=== PATIENT | female | born 1955 | race Caucasian/White ===

== ENCOUNTER 2020-04-11 13:46 | Emergency (ER) | payer MEDICARE, BC ==
--- NOTE | 2020-04-11 14:38 | EDM.PDOC ---
ED HPI GENERAL MEDICAL PROBLEM - General Chief Complaint: Gastrointestinal Problem Stated Complaint: DIARRHEA/BACK & STOMACH PAIN Time Seen by Provider: 04/11/20 14:20 Source of Information: Reports: Patient History Limitations: Reports: No Limitations - History of Present Illness INITIAL COMMENTS - FREE TEXT/NARRATIVE: This 64 yo female patient reports to the ED with 5 days of frequent diarrhea. The patient reports she started to have diarrhea this morning at about 0200 and has continued to have loose bowel movements every 45 minutes all day. The patient reports she has also had abdominal cramping, bad gas and belching. The patient reports her stools have been a "yellow" color and "slimy." The patient reports she took some Pepto and Tylenol today. The patient reports she had a similar episode in September that resolved. The patient also reports increased back pain. The patient reports she does have a history of back pain, but it seems to have gotten worse. The patient reports she had a cold pork sandwich and Cheetos for dinner last night. 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 Onset Date: 04/06/20 Duration: Constant Location: Reports: Abdomen, Back Quality: Reports: Other Severity: Moderate Improves with: Reports: None Worsens with: Reports: None Context: Reports: Other Treatments [employer]: Reports: Acetaminophen, Other Medication(s) (Pepto) Abdominal Pain Score (Numeric/FACES): 5 - Related Data Allergies Allergy/AdvReac Type Severity Reaction Status Date / Time Sulfa (Sulfonamide Allergy Cardiac Verified 04/11/20 14:12 Antibiotics) Arrest Home Meds: Home Meds . 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 Musculoskeletal History: Reports: None Neurological History: Reports: None Psychiatric History: Reports: None Endocrine/Metabolic History: Reports: Diabetes, Type II Hematologic History: Reports: None Immunologic History: Reports: None Oncologic (Cancer) History: Reports: None Dermatologic History: Reports: None - Infectious Disease History Infectious Disease History: Reports: None - Past Surgical History Head Surgeries/Procedures: Reports: None HEENT Surgical History: Reports: Cataract Surgery, Naso-Sinus Surgery Social & Family History - Family History Family Medical History: Noncontributory - Tobacco Use Smoking Status *Q: Never Smoker Second Hand Smoke Exposure: No - Caffeine Use Caffeine Use: Reports: Coffee - Recreational Drug Use Recreational Drug Use: No ED ROS GENERAL - Review of Systems Review Of Systems: Comprehensive ROS is negative, except as noted in HPI. ED EXAM, GI/ABD - Physical Exam Exam: See Below Exam Limited By: No Limitations General Appearance: Alert, WD/WN, Mild Distress Eyes: Bilateral: Normal Appearance, EOMI Ears: Normal External Exam, Normal Canal, Hearing Grossly Normal, Normal TMs Nose: Normal Inspection, Normal Mucosa, No Blood Throat/Mouth: Normal Inspection, Normal Lips, Normal Teeth, Normal Gums, Normal Oropharynx, Normal Voice, No Airway Compromise Head: Atraumatic, Normocephalic Neck: Normal Inspection, Supple, Non-Tender, Full Range of Motion Respiratory/Chest: No Respiratory Distress, Lungs Clear, Normal Breath Sounds, No Accessory Muscle Use, Chest Non-Tender Cardiovascular: Normal Peripheral Pulses, Regular Rate, Rhythm, No Edema, No Gallop, No JVD, No Murmur, No Rub GI/Abdominal Exam: Normal Bowel Sounds, Soft, No Organomegaly, No Distention, No Abnormal Bruit, No Mass, Pelvis Stable, Tender (diffuse) (Female) Exam: Deferred Rectal (Female) Exam: Deferred Back Exam: Normal Inspection, Full Range of Motion, NT Extremities: Normal Inspection, Normal Range of Motion, Non-Tender, Normal Capillary Refill, No Pedal Edema Neurological: Alert, Oriented, CN II-XII Intact, Normal Cognition, Normal Gait, Normal Reflexes, No Motor/Sensory Deficits Psychiatric: Normal Affect, Normal Mood Skin Exam: Warm, Dry, Intact, Normal Color, No Rash Lymphatic: No Adenopathy Course - Vital Signs Last Recorded V/S: Last Vital Signs Temp 36.9 C 04/11/20 14:08 Pulse 98 04/11/20 14:08 Resp 16 04/11/20 14:08 BP 100/64 04/11/20 14:08 Pulse Ox 98 04/11/20 14:08 - Orders/Labs/Meds Orders: Active Orders 24 hr Category Date Time Status Abdomen Pelvis wo Cont [CT] Urgent Exams 04/11/20 15:14 Ordered CULTURE URINE [RM] Urgent Lab 04/11/20 14:13 Received Labs: Laboratory Tests 04/11/20 04/11/20 04/11/20 Range/Units 14:13 14:23 14:23 WBC 7.9 (5.0-10.0) 10^3/uL RBC 4.15 L (4.2-5.4) 10^6/uL Hgb 11.9 L (12.0-16.0) g/dL Hct 36.0 L (37.0-47.0) % MCV 86.7 (80-100) fL MCH 28.7 (27.0-34.0) pg MCHC 33.1 (33.0-35.0) g/dL Plt Count 299 (150-450) 10^3/uL Neut % (Auto) 58.2 (42.2-75.2) % Lymph % (Auto) 23.4 (20.5-50.1) % Stewart % (Auto) 10.1 H (2-8) % Eos % (Auto) 8.2 H (1.0-3.0) % Baso % (Auto) 0.1 (0.0-1.0) % Sodium 134 L (136-145) mmol/L Potassium 3.5 (3.5-5.1) mmol/L Chloride 101 (98-107) mmol/L Carbon Dioxide 21 (21-32) mmol/L Anion Gap 15.5 H (7-13) mEq/L BUN 25 H (7-18) mg/dL Creatinine 1.41 H (0.55-1.02) mg/dL Est Cr Clr Drug Dosing 29.62 mL/min Estimated GFR (MDRD) 37 BUN/Creatinine Ratio 17.7 (No establ ref range) Glucose 234 H (74-99) mg/dL Calcium 8.2 L (8.5-10.1) mg/dL Total Bilirubin 0.3 (0.2-1.0) mg/dL AST 11 L (15-37) U/L ALT 19 (14-59) U/L Alkaline Phosphatase 57 (46-116) U/L Total Protein 7.0 (6.4-8.2) g/dL Albumin 3.6 (3.4-5.0) g/dL Globulin 3.4 Albumin/Globulin Ratio 1.1 Amylase 40 (25-115) U/L Lipase 54 L (73-393) U/L Urine Color Yellow (YELLOW) Urine Appearance Clear (CLEAR) Urine pH 6.0 (5.0-9.0) Ur Specific [place] 1.015 (1.005-1.030) Urine Protein Negative (NEGATIVE) Urine Glucose (UA) Negative (NEGATIVE) Urine Ketones Negative (NEGATIVE) Urine Occult Blood Negative (NEGATIVE) Urine Nitrite Negative (NEGATIVE) Urine Bilirubin Negative (NEGATIVE) Urine Urobilinogen 0.2 (0.2-1.0) mg/dL Ur Leukocyte Esterase Trace H (NEGATIVE) Urine RBC 0-5 /HPF Urine WBC 5-10 H (0-5/HPF) /HPF Ur Epithelial Cells Rare (NOT SEEN) /HPF Amorphous Sediment Occasional (NOT SEEN) /HPF Urine Bacteria Rare (0-FEW/HPF) /HPF Urine Mucus Not seen (NOT SEEN) /LPF Departure - Departure Time of Disposition: 15:56 Disposition: Home, Self-Care 01 Condition: Fair Clinical Impression: Gastroenteritis - Discharge Information *PRESCRIPTION DRUG MONITORING PROGRAM REVIEWED*: Not Applicable *COPY OF PRESCRIPTION DRUG MONITORING REPORT IN PATIENT MAGDALENA: Not Applicable Instructions: Viral Gastroenteritis, Adult, [id number] Forms: ED Department Discharge Care Plan Goals: The patient was advised of the examination and lab results during the visit. The patient was encouraged to stick to a BRAT diet (bananas, rice, applesauce and toast) with small frequent sips of fluid. If the patient has any additional symptoms or concerns, the patient should either return to the emergency department or follow-up with her primary care facility. Sepsis Event Note - Evaluation Sepsis Screening Result: No Definite Risk - Focused Exam Vital Signs: Vital Signs Temp Pulse Resp BP Pulse Ox 04/11/20 14:08 36.9 C 98 16 100/64 98 Date Exam was Performed: 04/11/20 Time Exam was Performed: 15:56 - My Orders Last 24 Hours: My Active Orders 04/11/20 14:13 CULTURE URINE [RM] Urgent 04/11/20 15:14 Abdomen Pelvis wo Cont [CT] Urgent - Assessment/Plan Last 24 Hours: My Active Orders 04/11/20 14:13 CULTURE URINE [RM] Urgent 04/11/20 15:14 Abdomen Pelvis wo Cont [CT] Urgent
[2020-04-11 14:53] LABS: ANION GAP 15.5 mEq/L (7-13)
--- NOTE | 2020-04-12 10:35 | CT ---
EXAMINATION: Abdomen Pelvis wo Cont SEX: Female AGE: 64 years CLINICAL HISTORY: 64-year-old female in the emergency department complaining of diffuse abdominal pain (with diarrhea). Scan technique: Volume acquisition of data emergency unenhanced CT scan of the abdomen and pelvis obtained with patient lying supine on the Siemens multi slice CT scanner [facility]. All data archived in the PACS system for storage, reformatting, axial/sagittal/coronal planes and study. Interpretation: No acute intraperitoneal abnormality. 1. 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 No fracture or dislocation lumbar spine. 2. Large densely calcified uterine fundal mass (probable fibroid). No other pelvic or abdominal mass lesion and no signs of mesenteric or retroperitoneal lymphadenopathy, inflammatory "dirty" peritoneal fat, diverticulosis, mechanical bowel obstruction, ascites or free intraperitoneal air. No ventral wall or inguinal hernias. 3. Gallbladder, unenhanced liver, stomach, spleen, pancreas and adrenal glands unremarkable. 4. Normal reniform size, axis and configuration. No cystic or solid renal cortical mass lesions. No nephrolithiasis or obstructive uropathy. Symmetrically distended normal appearing unenhanced urinary bladder (no intraluminal calcifications). 5. Dilated appendix without inflammatory wall thickening, stones (appendicolith), inflammatory mass or obstruction. 6. Lung bases clear. Normal cardiac silhouette. Calcification scattered course of normal caliber aortoiliac vessels. No aneurysm or obstruction/dissection. No ventral wall or inguinal hernias. 7. Air-fluid levels scattered course of normal caliber colon suggesting gastroenteritis. No current evidence mechanical small bowel obstruction. CONCLUSION: 1. Probable gastroenteritis. 2. Usual signs of senescence. No evidence of primary or metastatic intraperitoneal malignancy. No mechanical bowel obstruction or peritonitis.
== END 2020-04-11 16:15 | disposition home or self-care (01) ==
LOC: DL.ED 13:46
DX: K52.9 Noninfective gastroenteritis and colitis, unspecified (principal); E11.9 Type 2 diabetes mellitus without complications; Z88.2 Allergy status to sulfonamides
CPT/HCPCS: 36415; 74176; 80053; 81001; 82150; 83690; 85025; 87086; 99284-25

== ENCOUNTER 2023-04-04 14:31 | Emergency (ER) | payer MEDICARE, BC ==
[2023-04-04] MEDS ORDERED: Sodium Chloride 0.9% 10 ML Syringe FLUSH PRN (14:38)
[2023-04-04 14:50] LABS: BASOPHILS PERCENT AUTO 0.3 % (0.0-1.0); EOSINOPHILS PERCENT AUTO 3.1 % (1.0-3.0); HEMOGLOBIN 10.2 g/dL (12.0-16.0); LYMPHOCYTES PERCENT AUTO 12.8 % (20.5-50.1); MEAN CORPUSCULAR HEMOGLOBIN 29.4 pg (27.0-34.0); MEAN CORPUSCULAR VOLUME 86.5 fL (80-100); MONOCYTES PERCENT AUTO 11.8 % (2-8); PLATELET COUNT,PLT 288 10^3/uL (150-450); RED BLOOD CELL COUNT 3.47 10^6/uL (4.2-5.4); WHITE BLOOD CELL COUNT,WBC 11.6 10^3/uL (5.0-10.0)
[2023-04-04 15:05] LABS: APPEARANCE,URINE SLIGHTLY CLOUDY (CLEAR); BILIRUBIN,URINE SMALL (NEGATIVE); COLOR,URINE YELLOW (YELLOW); GLUCOSE,URINE 500 (NEGATIVE); KETONES,URINE 40 (NEGATIVE); LEUKOCYTE ESTERASE,URINE SMALL (NEGATIVE); NITRITE,URINE NEGATIVE (NEGATIVE); OCCULT BLOOD,URINE NEGATIVE (NEGATIVE); PROTEIN,URINE NEGATIVE (NEGATIVE)
[2023-04-04 15:15] LABS: LACTIC ACID 1.2 mmol/L (0.4-2.0)
[2023-04-04] MEDS ORDERED: Sodium Chloride 0.9% 1,000 ML IV ONE ×2 (15:16)
[2023-04-04 15:18] LABS: BILIRUBIN TOTAL 0.7 mg/dL (0.2-1.0); BUN/CREATININE RATIO 20.5 (No establ ref range); CALCIUM 8.7 mg/dL (8.5-10.1); CREATININE 1.17 mg/dL (0.55-1.02); EST CRCL DRUG DOSING (CG) 34.24 mL/min; MAGNESIUM 1.3 mg/dL (1.8-2.4); PROTEIN TOTAL,TP 6.3 g/dL (6.4-8.2)
[2023-04-04 15:19] LABS: A/G RATIO 0.91; C-REACTIVE PROTEIN 22.8 mg/dL (0.0-0.9)
[2023-04-04 15:23] LABS: BACTERIA,URINE MANY /HPF (0-FEW/HPF); EPITHELIAL CELLS,URINE MANY /HPF (NOT SEEN); RBC,URINE 0-5 /HPF (0-5); WBC,URINE 30-40 /HPF (0-5/HPF)
[2023-04-04] MEDS ORDERED: Iopamidol 612 MG/ML 100 ML Bottle IVPUSH ONE (15:39)
== END 2023-04-04 17:20 | disposition home or self-care (01) ==
LOC: DL.ED 14:31
DX: K52.9 Noninfective gastroenteritis and colitis, unspecified (principal); E11.40 Type 2 diabetes mellitus with diabetic neuropathy, unspecified; Z88.2 Allergy status to sulfonamides; Z79.4 Long term (current) use of insulin
CPT/HCPCS: 36415; 74177; 80053; 81001; 82009; 82150; 82272; 82947; 83605; 83690; 83735; 85025; 86140; 87045; 87046; 87086; 87088; 87186; 87804; 87899; 96360; 96361; 99213; 99284; J7030; Q9967; J3490

== ENCOUNTER 2023-08-08 05:29 | Inpatient (IN) | payer MEDICARE, BC ==
[2023-08-08] MEDS ORDERED: Sodium Chloride 0.9% 1,000 ML IV ONE (05:42)
[2023-08-08] MEDS ORDERED: Sodium Chloride 0.9% 10 ML Syringe FLUSH PRN ×2 (05:42→15:05)
[2023-08-08] MEDS ORDERED: Ondansetron 4 MG/2 ML SDV IVPUSH ONE (05:42)
[2023-08-08 06:00] LABS: BASOPHILS PERCENT AUTO 0.3 % (0.0-1.0); EOSINOPHILS PERCENT AUTO 6.5 % (1.0-3.0); HEMATOCRIT 30.9 % (37.0-47.0); HEMOGLOBIN 10.7 g/dL (12.0-16.0); LYMPHOCYTES PERCENT AUTO 22.4 % (20.5-50.1); MEAN CORPUSCULAR HEMOGLOBIN 28.2 pg (27.0-34.0); MEAN CORPUSCULAR HGB CONC 34.6 g/dL (33.0-35.0); MEAN CORPUSCULAR VOLUME 81.3 fL (80-100); MONOCYTES PERCENT AUTO 10.4 % (2-8); NEUTROPHILS PERCENT AUTO 60.4 % (42.2-75.2); PLATELET COUNT,PLT 338 10^3/uL (150-450)
[2023-08-08 06:18] LABS: ALANINE AMINOTRANSFERASE,ALT 19 U/L (14-59); ALBUMIN 3.3 g/dL (3.4-5.0); AMYLASE 43 U/L (25-115); ANION GAP 15.2 mEq/L (7-13); ASPARTATE AMNIOTRANSFERASE,AST 17 U/L (15-37); BILIRUBIN TOTAL 0.5 mg/dL (0.2-1.0); BLOOD UREA NITROGEN,BUN 7 mg/dL (7-18); BUN/CREATININE RATIO 7.1 (No establ ref range); C-REACTIVE PROTEIN 1.98 ng/dL (<=0.30); CALCIUM 9.5 mg/dL (8.5-10.1); CARBON DIOXIDE,CO2 26 mmol/L (21-32); CHLORIDE,CL 88 mmol/L (98-107); CREATININE 0.98 mg/dL (0.55-1.02); EST CRCL DRUG DOSING (CG) 40.31 mL/min; GLUCOSE RANDOM 272 mg/dL (70-99); LIPASE 14 U/L (16-77); POTASSIUM,K 4.2 mmol/L (3.5-5.1); PROTEIN TOTAL,TP 6.9 g/dL (6.4-8.2); SODIUM,NA 125 mmol/L (136-145)
[2023-08-08 06:21] LABS: APPEARANCE,URINE SLIGHTLY CLOUDY (CLEAR); BILIRUBIN,URINE NEGATIVE (NEGATIVE); COLOR,URINE YELLOW (YELLOW); GLUCOSE,URINE 100 (NEGATIVE); KETONES,URINE 40 (NEGATIVE); LEUKOCYTE ESTERASE,URINE SMALL (NEGATIVE); NITRITE,URINE NEGATIVE (NEGATIVE); OCCULT BLOOD,URINE NEGATIVE (NEGATIVE); PH,URINE 6.5 (5.0-9.0); PROTEIN,URINE NEGATIVE (NEGATIVE); UROBILINOGEN,URINE 0.2 mg/dL (0.2-1.0)
[2023-08-08 06:32] LABS: ALKALINE PHOSPHATASE 74 U/L (46-116)
[2023-08-08 06:36] LABS: A/G RATIO 0.92; ESTIMATED GFR 62 mL/min (>=60)
[2023-08-08] MEDS ORDERED: Magnesium Sulfate/Water 2 GM in Premix Bag 1 BAG IV ONE (06:42)
[2023-08-08 06:44] LABS: PROTHROMBIN TIME 10.4 SEC (9.0-12.0)
[2023-08-08 06:46] LABS: BACTERIA,URINE MANY /HPF (0-FEW/HPF); EPITHELIAL CELLS,URINE FEW /HPF (NOT SEEN); MUCUS,URINE FEW /LPF (NOT SEEN); RBC,URINE 0-5 /HPF (0-5); WBC,URINE 20-30 /HPF (0-5/HPF)
[2023-08-08 09:42] LABS: ANION GAP 12.6 mEq/L (7-13); CALCIUM 8.9 mg/dL (8.5-10.1); CREATININE 0.84 mg/dL (0.55-1.02); EST CRCL DRUG DOSING (CG) 47.03 mL/min; MAGNESIUM 1.8 mg/dL (1.8-2.4); POTASSIUM,K 3.6 mmol/L (3.5-5.1)
[2023-08-08] MEDS ORDERED: Albuterol/Ipratropium 3.0-0.5 MG/3 ML Neb Soln NEB PRN (15:05)
[2023-08-08] MEDS ORDERED: HYDROmorphone 0.5 MG/0.5 ML Syringe IVPUSH PRN (15:05)
[2023-08-08] MEDS ORDERED: Ondansetron 4 MG/2 ML SDV IVPUSH PRN (15:05)
[2023-08-08] MEDS ORDERED: Non-Formulary Medication 1 Each (Acetaminophen [Tylenol Extra Strength] 500 MG Tablet) PO PRN (15:08)
[2023-08-08] MEDS ORDERED: Loperamide 2 MG Cap PO PRN (15:08)
[2023-08-08] MEDS ORDERED: LACTASE 9000 UNIT PO PRN (15:08)
[2023-08-08] MEDS ORDERED: SIMETHICONE 250 MG PO PRN (15:08)
[2023-08-08] MEDS ORDERED: DULOXETINE 30 MG PO SCH (15:15)
[2023-08-08] MEDS ORDERED: FLUTICASONE PROPIONATE NAS SCH (15:15)
[2023-08-08] MEDS: Acetaminophen 325 MG Tab PO PRN ×2 (15:24→21:33)
[2023-08-08] MEDS ORDERED: Simethicone 80 MG Tab.Chew PO PRN (16:12)
[2023-08-08] MEDS: NOVOLOG U INSULIN SUBCUT SCH (17:11)
[2023-08-08] MEDS: Sodium Chloride 0.9% 1,000 ML IV SCH (19:37)
[2023-08-08] MEDS ORDERED: PREGABALIN 100 MG PO SCH (21:00)
[2023-08-08] MEDS ORDERED: Non-Formulary Medication 1 Each (Insulin Degludec [Tresiba] 100 UNIT/ML Vial) SQ SCH (21:00)
[2023-08-08] MEDS: LATANOPROST EYEBOTH SCH (21:28)
[2023-08-08] MEDS: INSULIN DEGLUDEC SQ SCH (21:29)
[2023-08-08] MEDS: Sodium Chloride 0.9% 10 ML Syringe FLUSH SCH (21:32)
[2023-08-08] MEDS: Non-Formulary Medication 1 Each (Pregabalin [Lyrica] 100 MG) PO SCH (22:29)
[2023-08-09 06:46] LABS: BASOPHILS PERCENT AUTO 0.2 % (0.0-1.0); EOSINOPHILS PERCENT AUTO 9.8 % (1.0-3.0); HEMATOCRIT 30.1 % (37.0-47.0); LYMPHOCYTES PERCENT AUTO 30.7 % (20.5-50.1); MEAN CORPUSCULAR HEMOGLOBIN 27.5 pg (27.0-34.0); MEAN CORPUSCULAR HGB CONC 33.2 g/dL (33.0-35.0); MEAN CORPUSCULAR VOLUME 82.9 fL (80-100); MONOCYTES PERCENT AUTO 12.2 % (2-8); NEUTROPHILS PERCENT AUTO 47.1 % (42.2-75.2); PLATELET COUNT,PLT 365 10^3/uL (150-450); RED BLOOD CELL COUNT 3.63 10^6/uL (4.2-5.4); WHITE BLOOD CELL COUNT,WBC 5.4 10^3/uL (5.0-10.0)
[2023-08-09 07:03] LABS: ANION GAP 10.6 mEq/L (7-13); BILIRUBIN TOTAL 0.3 mg/dL (0.2-1.0); BUN/CREATININE RATIO 5.4 (No establ ref range); C-REACTIVE PROTEIN 1.26 ng/dL (<=0.30); CALCIUM 8.5 mg/dL (8.5-10.1); CREATININE 0.92 mg/dL (0.55-1.02); EST CRCL DRUG DOSING (CG) 42.94 mL/min; MAGNESIUM 1.4 mg/dL (1.8-2.4); POTASSIUM,K 3.6 mmol/L (3.5-5.1); PROTEIN TOTAL,TP 6.3 g/dL (6.4-8.2)
[2023-08-09 07:04] LABS: A/G RATIO 0.91
[2023-08-09] MEDS: Non-Formulary Medication 1 Each (Pregabalin [Lyrica] 100 MG) PO SCH (07:46)
[2023-08-09] MEDS: Acetaminophen 325 MG Tab PO PRN ×2 (07:57→22:15)
[2023-08-09] MEDS: Sodium Chloride 0.9% 10 ML Syringe FLUSH SCH ×2 (08:05→22:12)
[2023-08-09] MEDS: NOVOLOG U INSULIN SUBCUT SCH ×3 (08:12→17:07)
[2023-08-09] MEDS ORDERED: Magnesium Sulfate/Water 2 GM in Premix Bag 1 BAG IV ONE (08:25)
[2023-08-09] MEDS ORDERED: Non-Formulary Medication 1 Each (Fexofenadine Hcl [Allegra Allergy] 60 MG Tablet) PO SCH (09:00)
[2023-08-09] MEDS ORDERED: PREGABALIN 100 MG PO SCH (13:33)
[2023-08-09] MEDS: PREGABALIN 100 MG PO SCH ×2 (13:59→22:09)
[2023-08-09] MEDS: Sodium Chloride 0.9% 1,000 ML IV SCH (17:35)
[2023-08-09] MEDS ORDERED: BISACODYL 5 MG PO PRN (21:34)
[2023-08-09] MEDS ORDERED: Non-Formulary Medication 1 Each PO ONE (21:34)
[2023-08-09] MEDS: INSULIN DEGLUDEC SQ SCH (22:07)
[2023-08-09] MEDS: LATANOPROST EYEBOTH SCH (22:09)
[2023-08-09] MEDS: FEXOFENADINE PO SCH (22:10)
[2023-08-10 06:32] LABS: BASOPHILS PERCENT AUTO 0.4 % (0.0-1.0); EOSINOPHILS PERCENT AUTO 9.1 % (1.0-3.0); HEMATOCRIT 28.6 % (37.0-47.0); HEMOGLOBIN 9.4 g/dL (12.0-16.0); LYMPHOCYTES PERCENT AUTO 27.8 % (20.5-50.1); MEAN CORPUSCULAR HEMOGLOBIN 27.7 pg (27.0-34.0); MEAN CORPUSCULAR HGB CONC 32.9 g/dL (33.0-35.0); MEAN CORPUSCULAR VOLUME 84.4 fL (80-100); NEUTROPHILS PERCENT AUTO 48.7 % (42.2-75.2); PLATELET COUNT,PLT 356 10^3/uL (150-450); RED BLOOD CELL COUNT 3.39 10^6/uL (4.2-5.4); WHITE BLOOD CELL COUNT,WBC 5.7 10^3/uL (5.0-10.0)
[2023-08-10 07:02] LABS: ALBUMIN 2.8 g/dL (3.4-5.0); ANION GAP 9.5 mEq/L (7-13); BILIRUBIN TOTAL 0.2 mg/dL (0.2-1.0); BUN/CREATININE RATIO 5.1 (No establ ref range); C-REACTIVE PROTEIN 0.74 ng/dL (<=0.30); CALCIUM 8.1 mg/dL (8.5-10.1); CREATININE 0.78 mg/dL (0.55-1.02); EST CRCL DRUG DOSING (CG) 50.64 mL/min; MAGNESIUM 1.7 mg/dL (1.8-2.4); POTASSIUM,K 3.5 mmol/L (3.5-5.1); PROTEIN TOTAL,TP 5.8 g/dL (6.4-8.2)
[2023-08-10 07:03] LABS: A/G RATIO 0.93
[2023-08-10] MEDS: PREGABALIN 100 MG PO SCH ×3 (07:41→22:08)
[2023-08-10] MEDS: Acetaminophen 325 MG Tab PO PRN ×3 (07:43→22:09)
[2023-08-10] MEDS: FEXOFENADINE PO SCH ×2 (08:07→22:09)
[2023-08-10] MEDS: NOVOLOG U INSULIN SUBCUT SCH ×3 (08:08→17:02)
[2023-08-10] MEDS: Sodium Chloride 0.9% 10 ML Syringe FLUSH SCH ×2 (08:08→20:29)
[2023-08-10] MEDS ORDERED: Magnesium Sulfate/Water 2 GM in Premix Bag 1 BAG IV ONE ×2 (08:18→18:00)
[2023-08-10] MEDS ORDERED: cefTRIAXone 1 GM Vial IVPUSH ONE (11:35)
[2023-08-10] MEDS ORDERED: Saccharomyces Boulardii (Probiotic) 250 MG Cap PO STA (11:37)
[2023-08-10] MEDS ORDERED: Potassium Chloride 10 MEQ Tab.ER PO ONE (19:59)
[2023-08-10] MEDS: LATANOPROST EYEBOTH SCH (22:09)
[2023-08-10] MEDS: INSULIN DEGLUDEC SQ SCH (22:11)
[2023-08-11] MEDS ORDERED: Saccharomyces Boulardii (Probiotic) 250 MG Cap PO SCH ×2 (06:00→09:00)
[2023-08-11] MEDS ORDERED: cefTRIAXone 1 GM Vial IVPUSH SCH ×2 (06:00→12:00)
[2023-08-11 06:24] LABS: BASOPHILS PERCENT AUTO 0.5 % (0.0-1.0); HEMATOCRIT 30.1 % (37.0-47.0); LYMPHOCYTES PERCENT AUTO 25.4 % (20.5-50.1); MEAN CORPUSCULAR HEMOGLOBIN 28.4 pg (27.0-34.0); MEAN CORPUSCULAR HGB CONC 33.2 g/dL (33.0-35.0); MEAN CORPUSCULAR VOLUME 85.5 fL (80-100); MONOCYTES PERCENT AUTO 10.6 % (2-8); NEUTROPHILS PERCENT AUTO 57.5 % (42.2-75.2); PLATELET COUNT,PLT 356 10^3/uL (150-450); RED BLOOD CELL COUNT 3.52 10^6/uL (4.2-5.4); WHITE BLOOD CELL COUNT,WBC 7.5 10^3/uL (5.0-10.0)
[2023-08-11 06:57] LABS: A/G RATIO 0.89; ALBUMIN 3.1 g/dL (3.4-5.0); ANION GAP 13.7 mEq/L (7-13); BILIRUBIN TOTAL 0.3 mg/dL (0.2-1.0); BUN/CREATININE RATIO 5.7 (No establ ref range); C-REACTIVE PROTEIN 0.61 ng/dL (<=0.30); CALCIUM 8.7 mg/dL (8.5-10.1); CREATININE 0.87 mg/dL (0.55-1.02); EST CRCL DRUG DOSING (CG) 45.4 mL/min; MAGNESIUM 2.3 mg/dL (1.8-2.4); POTASSIUM,K 4.7 mmol/L (3.5-5.1); PROTEIN TOTAL,TP 6.6 g/dL (6.4-8.2)
== END 2023-08-11 08:23 | disposition home or self-care (01) | DRG 392 ==
LOC: DL.ED 05:29 → DL.MS 11:08 → OBSVTOIN 08-10 18:52
PROVIDERS: ADMIT Internal Medicine; ATTEND Internal Medicine
DX: K59.89 Other specified functional intestinal disorders (principal); N39.0 Urinary tract infection, site not specified; E87.1 Hypo-osmolality and hyponatremia; E10.42 Type 1 diabetes mellitus with diabetic polyneuropathy; D64.9 Anemia, unspecified; E10.65 Type 1 diabetes mellitus with hyperglycemia; E83.42 Hypomagnesemia; B96.20 Unspecified Escherichia coli [E. coli] as the cause of diseases classified elsewhere; G89.29 Other chronic pain; R53.1 Weakness; M54.9 Dorsalgia, unspecified; F41.9 Anxiety disorder, unspecified; E87.8 Other disorders of electrolyte and fluid balance, not elsewhere classified; R19.7 Diarrhea, unspecified; R11.2 Nausea with vomiting, unspecified; Z88.2 Allergy status to sulfonamides; Z88.8 Allergy status to other drugs, medicaments and biological substances; Z98.49 Cataract extraction status, unspecified eye; Z98.890 Other specified postprocedural states; Z83.3 Family history of diabetes mellitus; Z20.822 Contact with and (suspected) exposure to COVID-19; E11.40 Type 2 diabetes mellitus with diabetic neuropathy, unspecified; Z79.4 Long term (current) use of insulin; Z79.899 Other long term (current) drug therapy
CPT/HCPCS: 36415 ×3; 80048; 80053 ×3; 81001; 82150; 82947; 83605; 83690; 83735 ×4; 84145; 85025 ×3; 85610; 85730; 86140 ×3; 87045; 87046 ×2; 87086; 87088; 87186; 87328; 87329; 87493; 87899 ×2; 99283; A9270 ×8; J0696; J2405 ×2; J3475 ×4; J7030 ×3; U0002; 96361; 96365; 96366; 96375; 96376; 99284-25; G0378; J3490

== ENCOUNTER 2024-03-12 15:34 | Emergency (ER) | payer MEDICARE, BC ==
[2024-03-12 16:04] LABS: HEMATOCRIT 28.9 % (37.0-47.0); HEMOGLOBIN 9.3 g/dL (12.0-16.0); MEAN CORPUSCULAR HGB CONC 32.2 g/dL (33.0-35.0); PLATELET COUNT,PLT 531 10^3/uL (150-450); RED BLOOD CELL COUNT 3.32 10^6/uL (4.2-5.4); WHITE BLOOD CELL COUNT,WBC 13.5 10^3/uL (5.0-10.0)
[2024-03-12 16:10] LABS: BASOPHILS PERCENT AUTO 0.4 % (0.0-1.0); EOSINOPHILS PERCENT AUTO 0.7 % (1.0-3.0); LYMPHOCYTES PERCENT AUTO 14.8 % (20.5-50.1); MONOCYTES PERCENT AUTO 8.7 % (2-8); NEUTROPHILS PERCENT AUTO 75.4 % (42.2-75.2)
[2024-03-12] MEDS: Sodium Chloride 0.9% 1,000 ML IV ONE (16:18)
[2024-03-12 16:27] LABS: ALANINE AMINOTRANSFERASE,ALT 17 U/L (14-59); ALBUMIN 3.2 g/dL (3.4-5.0); ALKALINE PHOSPHATASE 51 U/L (46-116); ANION GAP 13.7 mEq/L (7-13); ASPARTATE AMNIOTRANSFERASE,AST 7 U/L (15-37); BILIRUBIN TOTAL 0.2 mg/dL (0.2-1.0); BLOOD UREA NITROGEN,BUN 22 mg/dL (7-18); BUN/CREATININE RATIO 18.5 (No establ ref range); CALCIUM 8.5 mg/dL (8.5-10.1); CARBON DIOXIDE,CO2 27 mmol/L (21-32); CHLORIDE,CL 93 mmol/L (98-107); CREATININE 1.19 mg/dL (0.55-1.02); EST CRCL DRUG DOSING (CG) 33.19 mL/min; GLUCOSE RANDOM 134 mg/dL (70-99); MAGNESIUM 1.3 mg/dL (1.8-2.4); POTASSIUM,K 4.7 mmol/L (3.5-5.1); PROTEIN TOTAL,TP 6.7 g/dL (6.4-8.2); SODIUM,NA 129 mmol/L (136-145)
[2024-03-12 16:28] LABS: A/G RATIO 0.91; BAND PERCENT MAN 2 %; C-REACTIVE PROTEIN < 0.50 ng/dL (<=0.50); ESTIMATED GFR 49 mL/min (>=60); LYMPHOCYTES PERCENT MAN 19 % (20-50); MONOCYTES PERCENT MAN 5 % (2-8); SEG NEUTROPHILS PERCENT MAN 73 % (42-75)
[2024-03-12 16:29] LABS: EOSINOPHILS PERCENT MAN 1 % (1-3)
[2024-03-12 16:45] LABS: CORONAVIRUS COVID-19 NAA NEGATIVE (NEGATIVE); INFLUENZA A NAA NEGATIVE (NEGATIVE); INFLUENZA B NAA NEGATIVE (NEGATIVE)
[2024-03-12] MEDS ORDERED: Furosemide 40 MG/4 ML VIAL IVPUSH ONE (16:53)
[2024-03-12] MEDS: Sodium Chloride 0.9% 10 ML Syringe FLUSH PRN ×2 (17:06→17:07)
[2024-03-12] MEDS: Magnesium Sulfate/Water 2 GM in Premix Bag 1 BAG IV ONE (17:06)
[2024-03-12 18:05] LABS: APPEARANCE,URINE SLIGHTLY CLOUDY (CLEAR); BILIRUBIN,URINE NEGATIVE (NEGATIVE); COLOR,URINE YELLOW (YELLOW); GLUCOSE,URINE NEGATIVE (NEGATIVE); KETONES,URINE NEGATIVE (NEGATIVE); LEUKOCYTE ESTERASE,URINE TRACE (NEGATIVE); NITRITE,URINE POSITIVE (NEGATIVE); OCCULT BLOOD,URINE NEGATIVE (NEGATIVE); PH,URINE 6.5 (5.0-9.0); PROTEIN,URINE NEGATIVE (NEGATIVE); UROBILINOGEN,URINE 0.2 mg/dL (0.2-1.0)
[2024-03-12 18:16] LABS: BACTERIA,URINE MANY /HPF (0-FEW/HPF); EPITHELIAL CELLS,URINE RARE /HPF (NOT SEEN); RBC,URINE NOT SEEN /HPF (0-5)
[2024-03-12] MEDS: cefTRIAXone 2 GM Vial IVPUSH ONE (18:56)
== END 2024-03-12 19:09 | disposition home or self-care (01) ==
LOC: DL.ED 15:34
DX: E83.42 Hypomagnesemia (principal); N30.01 Acute cystitis with hematuria; E87.1 Hypo-osmolality and hyponatremia; E10.40 Type 1 diabetes mellitus with diabetic neuropathy, unspecified; Z86.19 Personal history of other infectious and parasitic diseases; Z79.4 Long term (current) use of insulin; Z79.899 Other long term (current) drug therapy; Z88.2 Allergy status to sulfonamides; Z88.8 Allergy status to other drugs, medicaments and biological substances
CPT/HCPCS: 0240U; 36415; 80053; 81001; 83605; 83735; 84100; 84484; 85025; 86140; 87086; 87088; 87186; 93005; 96361; 96365; 96366; 96375; 99285; J0696; J3475; J7030; J3490

== ENCOUNTER 2024-07-13 13:51 | Inpatient (IN) | payer MEDICARE, BC ==
[2024-07-13] MEDS ORDERED: Sodium Chloride 0.9% 10 ML Syringe FLUSH PRN (14:09)
[2024-07-13] MEDS: Sodium Chloride 0.9% 1,000 ML IV ONE (14:17)
[2024-07-13 14:19] LABS: BASOPHILS PERCENT AUTO 0.2 % (0.0-1.0); EOSINOPHILS PERCENT AUTO 0.4 % (1.0-3.0); HEMATOCRIT 29.2 % (37.0-47.0); HEMOGLOBIN 9.3 g/dL (12.0-16.0); LYMPHOCYTES PERCENT AUTO 9.1 % (20.5-50.1); MEAN CORPUSCULAR HEMOGLOBIN 26.6 pg (27.0-34.0); MEAN CORPUSCULAR HGB CONC 31.8 g/dL (33.0-35.0); MEAN CORPUSCULAR VOLUME 83.4 fL (80-100); MONOCYTES PERCENT AUTO 14.4 % (2-8); NEUTROPHILS PERCENT AUTO 75.9 % (42.2-75.2); PLATELET COUNT,PLT 360 10^3/uL (150-450); WHITE BLOOD CELL COUNT,WBC 12.7 10^3/uL (5.0-10.0)
[2024-07-13 14:43] LABS: PROTHROMBIN TIME 10.2 SEC (9.0-12.0); PTT,PARTIAL THROMBOPLSTIN TIME 32.1 SEC (22.0-34.0)
[2024-07-13 14:44] LABS: ALANINE AMINOTRANSFERASE,ALT 13 U/L (14-59); ALBUMIN 3.3 g/dL (3.4-5.0); ALKALINE PHOSPHATASE 73 U/L (46-116); ANION GAP 14.7 mEq/L (7-13); ASPARTATE AMNIOTRANSFERASE,AST 12 U/L (15-37); BILIRUBIN TOTAL 0.6 mg/dL (0.2-1.0); BLOOD UREA NITROGEN,BUN 25 mg/dL (7-18); BUN/CREATININE RATIO 18.5 (No establ ref range); C-REACTIVE PROTEIN 14.06 ng/dL (<=0.50); CALCIUM 9.1 mg/dL (8.5-10.1); CARBON DIOXIDE,CO2 23 mmol/L (21-32); CHLORIDE,CL 95 mmol/L (98-107); CREATININE 1.35 mg/dL (0.55-1.02); GLUCOSE RANDOM 277 mg/dL (70-99); MAGNESIUM 1.4 mg/dL (1.8-2.4); POTASSIUM,K 4.7 mmol/L (3.5-5.1); PROTEIN TOTAL,TP 7.2 g/dL (6.4-8.2); SODIUM,NA 128 mmol/L (136-145)
[2024-07-13 14:45] LABS: LACTIC ACID 1.2 mmol/L (0.4-2.0)
[2024-07-13 14:53] LABS: A/G RATIO 0.85; ESTIMATED GFR 42 mL/min (>=60)
[2024-07-13] MEDS: Magnesium Sulfate/Water 2 GM in Premix Bag 1 BAG IV ONE (15:05)
[2024-07-13 16:29] LABS: APPEARANCE,URINE CLOUDY (CLEAR); BILIRUBIN,URINE NEGATIVE (NEGATIVE); COLOR,URINE YELLOW (YELLOW); GLUCOSE,URINE NEGATIVE (NEGATIVE); KETONES,URINE 40 (NEGATIVE); LEUKOCYTE ESTERASE,URINE MODERATE (NEGATIVE); NITRITE,URINE POSITIVE (NEGATIVE); OCCULT BLOOD,URINE TRACE-INTACT (NEGATIVE); PH,URINE 5.5 (5.0-9.0); PROTEIN,URINE 30 (NEGATIVE); UROBILINOGEN,URINE 0.2 mg/dL (0.2-1.0)
[2024-07-13] MEDS: Acetaminophen 500 MG Tab PO ONE (16:31)
[2024-07-13] MEDS: Pregabalin 50 MG Cap PO ONE (16:34)
[2024-07-13] MEDS: cefTRIAXone 1 GM Vial IVPUSH ONE (16:42)
[2024-07-13 16:46] LABS: BACTERIA,URINE MANY /HPF (0-FEW/HPF); EPITHELIAL CELLS,URINE FEW /HPF (NOT SEEN); MUCUS,URINE FEW /LPF (NOT SEEN); WBC,URINE PACKED /HPF (0-5/HPF)
[2024-07-13] MEDS ORDERED: Docusate Sodium 100 MG Cap PO PRN (16:56)
[2024-07-13] MEDS ORDERED: Ondansetron 4 MG Tab.DIS PO PRN (16:56)
[2024-07-13] MEDS ORDERED: Loperamide 2 MG Cap PO PRN (18:46)
[2024-07-13] MEDS ORDERED: Simethicone 80 MG Tab.Chew PO PRN (18:56)
[2024-07-13] MEDS: INSULIN DEGLUDEC 100 UNIT/ML SUBCUT SCH (20:30)
[2024-07-13] MEDS: Sodium Chloride 0.9% 1,000 ML IV SCH (21:30)
[2024-07-13] MEDS: Heparin Sodium 5,000 Units/ML Vial SUBCUT SCH (21:41)
[2024-07-13] MEDS: Loratadine 10 MG Tab PO SCH (21:41)
[2024-07-13] MEDS: Latanoprost 0.005% Ophth Soln 2.5 ML Bottle EYEBOTH SCH (21:42)
[2024-07-13] MEDS: Pregabalin 50 MG Cap PO SCH (21:43)
[2024-07-13] MEDS: Insulin Glarg,Human.Rec.Analog 100 Unit/ML 10 ML Vial SUBCUT SCH (21:43)
[2024-07-13] MEDS ORDERED: 50% Dextrose in Water 50 ML Syringe IVPUSH PRN ×2 (22:24→22:32)
[2024-07-13] MEDS ORDERED: Glucagon,Human Recombinant 1 MG Vial IM PRN ×2 (22:24→22:32)
[2024-07-13] MEDS: Acetaminophen 500 MG Tab PO PRN (23:06)
[2024-07-14] MEDS ORDERED: Insulin Lispro 100 Units/ML 3 ML Vial SUBCUT SCH ×2 (08:00)
[2024-07-14] MEDS: DULoxetine 30 MG Cap PO SCH (08:45)
[2024-07-14] MEDS: cefTRIAXone 1 GM Vial IVPUSH ONE (08:45)
[2024-07-14] MEDS: Fluticasone NASAL Spray 16 GM Bottle NASBOTH SCH (08:45)
[2024-07-14] MEDS: INSULIN ASPART SUBCUT SCH (10:31)
[2024-07-14] MEDS ORDERED: Insulin Glarg,Human.Rec.Analog 100 Unit/ML 10 ML Vial SUBCUT SCH (21:00)
[2024-07-15] MEDS: cefTRIAXone 2 GM Vial IV SCH (08:59)
[2024-07-16 06:13] LABS: HEMATOCRIT 26.5 % (37.0-47.0); HEMOGLOBIN 8.4 g/dL (12.0-16.0); MEAN CORPUSCULAR HEMOGLOBIN 26.5 pg (27.0-34.0); MEAN CORPUSCULAR HGB CONC 31.7 g/dL (33.0-35.0); MEAN CORPUSCULAR VOLUME 83.6 fL (80-100); RED BLOOD CELL COUNT 3.17 10^6/uL (4.2-5.4); WHITE BLOOD CELL COUNT,WBC 6.3 10^3/uL (5.0-10.0)
[2024-07-16 06:27] LABS: ANION GAP 12.1 mEq/L (7-13); CALCIUM 8.8 mg/dL (8.5-10.1); CREATININE 0.97 mg/dL (0.55-1.02); EST CRCL DRUG DOSING (CG) 40.14 mL/min; POTASSIUM,K 4.1 mmol/L (3.5-5.1)
[2024-07-17 06:02] LABS: HEMOGLOBIN 8.6 g/dL (12.0-16.0); MEAN CORPUSCULAR HEMOGLOBIN 26.5 pg (27.0-34.0); MEAN CORPUSCULAR HGB CONC 31.9 g/dL (33.0-35.0); MEAN CORPUSCULAR VOLUME 83.1 fL (80-100); RED BLOOD CELL COUNT 3.25 10^6/uL (4.2-5.4); WHITE BLOOD CELL COUNT,WBC 5.3 10^3/uL (5.0-10.0)
[2024-07-17 06:15] LABS: ANION GAP 10.6 mEq/L (7-13); CALCIUM 9.2 mg/dL (8.5-10.1); CREATININE 0.98 mg/dL (0.55-1.02); EST CRCL DRUG DOSING (CG) 39.73 mL/min; POTASSIUM,K 4.6 mmol/L (3.5-5.1)
== END 2024-07-17 11:55 | disposition home or self-care (01) | DRG 872 ==
LOC: DL.ED 13:51 → DL.MS 16:47 → DL.ED 17:10 → OBSVTOIN 07-15 16:01
PROVIDERS: ADMIT Internal Medicine; ATTEND Internal Medicine
DX: A41.51 Sepsis due to Escherichia coli [E. coli] (principal); N17.9 Acute kidney failure, unspecified; Z16.29 Resistance to other single specified antibiotic; E87.1 Hypo-osmolality and hyponatremia; N30.00 Acute cystitis without hematuria; R65.20 Severe sepsis without septic shock; E10.42 Type 1 diabetes mellitus with diabetic polyneuropathy; H54.7 Unspecified visual loss; M54.9 Dorsalgia, unspecified; G89.29 Other chronic pain; F41.9 Anxiety disorder, unspecified; E10.65 Type 1 diabetes mellitus with hyperglycemia; K52.839 Microscopic colitis, unspecified; E83.42 Hypomagnesemia; Z88.2 Allergy status to sulfonamides; E11.65 Type 2 diabetes mellitus with hyperglycemia; Z88.8 Allergy status to other drugs, medicaments and biological substances; Z98.49 Cataract extraction status, unspecified eye; Z98.890 Other specified postprocedural states; Z79.4 Long term (current) use of insulin; Z79.899 Other long term (current) drug therapy
CPT/HCPCS: 36415; 71045; 80053; 81001; 82947; 83605; 83735; 84145; 84484; 85025; 85610; 85730; 86140; 87040 ×2; 87077; 87086; 87088; 87186 ×2; 87804 ×2; 93005; 93010; 96361; 96365; 96372 ×3; 96375; 96376 ×2; 97161; 97165; 99284; 99285; A9270 ×15; G0378 ×4; J0696 ×3; J1644 ×6; J3475; J7030 ×4; U0002; 80048; 85027; 86788; 97530-GP; 99223; 99233; 99239